=== PATIENT | female | born 1935 | race Caucasian/White ===

== ENCOUNTER 2016-09-14 07:05 | Emergency (ER) | payer MEDICARE, OTHER ==
[2016-09-14] MEDS ORDERED: ACETAMINOPHEN 325 MG TABLET PO ONE (07:51)
[2016-09-14 08:30] LABS: ABSOLUTE EOSINOPHILS # (AUTO) 0.1 10^3/uL (0.0-0.6); ABSOLUTE LYMPHOCYTES (AUTO) 1.4 10^3/uL (0.5-4.7); ABSOLUTE MONOCYTES (AUTO) 0.5 10^3/uL (0.1-1.4); ABSOLUTE NEUT (AUTO) 2.5 10^3/uL (1.7-8.2); BASOPHILS % (AUTO) 0.8 % (0-2); EOSINOPHILS % (AUTO) 2.6 % (0-6); HEMATOCRIT 37.4 % (36.0-47.0); HEMOGLOBIN 12.3 g/dL (12.0-15.5); HGB HCT DIFFERENCE -0.5; LYMPHOCYTES % (AUTO) 30.5 % (13-45); MEAN CORPUSCULAR HEMOGLOBIN 30.5 pg (27.0-33.4); MEAN CORPUSCULAR VOLUME 92 fl (80-97); RED BLOOD COUNT 4.05 10^6/uL (3.72-5.28); RED CELL DISTRIBUTION WIDTH 12.9 % (11.5-14.0); SEGMENTED NEUTROPHILS % (AUTO) 56.1 % (42-78); WHITE BLOOD COUNT 4.5 10^3/uL (4.0-10.5)
--- NOTE | 2016-09-14 08:31 | ER Document Report ---
ED General - General Chief Complaint: Psych Problem Stated Complaint: PSYCH EVAL Time Seen by Provider: 09/14/16 07:15 Notes: patient is an 81-year-old female presents emergency department via EMS with family primary complaint of dementia. History per daughter who is at the bedside. Patient in May of this year and since then patient's mental status was rapidly decline secondary to Alzheimer's. Patient is following with primary care physician Dr. Root in [place] who has been adding medications to help cope with her acute episodes. Family presents today after patient has become more aggressive over the past 3 weeks. Daughter states that she is verbally abusive and occasionally throws objects at her her . They have difficulty redirecting her and orienting her. Otherwise denies any head injury, fevers, lethargy, weakness, decreased appetite, nausea, vomiting, abdominal pain, chest pain, cough. Medical history significant for history of left breast cancer with a left lumpectomy, history of atrial flutter, history of hypothyroidism, GERD. Past surgical history significant for lumpectomy and Oksana. Home medications are Exelon patch, Xanax, risperidone, metoprolol, levothyroxine , Paxil Past Medical History - Social History Smoking Status: Unknown if Ever Smoked Family History: Reviewed & Not Pertinent - Immunizations Hx Diphtheria, Pertussis, Tetanus Vaccination: - unknown Review of Systems - Review of Systems -: Yes ROS unobtainable due to patient's medical condition Physical Exam - Vital signs Vitals: Temp Pulse Resp BP 98.2 F 71 16 128/71 H 09/14/16 07:29 09/14/16 07:29 09/14/16 07:29 09/14/16 07:29 - General General appearance: Appears well, Other - Drowsy but arousable In distress: None Notes: PHYSICAL EXAM GENERAL: Alert, interacts well. HEAD: Normocephalic, atraumatic. EYES: Pupils equal, round, and reactive to light. Extraocular movements intact. ENT: Oral mucosa moist, tongue midline. NECK: Full range of motion. Supple. Trachea midline. LUNGS: Clear to auscultation bilaterally, no wheezes, rales, or rhonchi. No respiratory distress. HEART: Regular rate and rhythm. No murmurs, gallops, or rubs. ABDOMEN: Soft, nondistended, nontender. No guarding, rebound, or rigidity.. Bowel sounds present in all 4 quadrants. EXTREMITIES: Moves all 4 extremities spontaneously. No edema, radial and dorsalis pedis pulses 2/4 bilaterally. No cyanosis. NEUROLOGICAL: Alert and oriented x4. Normal speech. PSYCH: Normal affect, normal mood. SKIN: Warm, dry, normal turgor. No rashes or lesions noted. Course - Re-evaluation Re-evalutation: 09/14/16 09:19 Patient is an 81-year-old female hemodynamic stable, no acute distress and afebrile. CBC and CMP within normal limits with no evidence of leukocytosis, anemia, electrolyte abnormality, abnormality and function of liver, pancreas or kidneys. Urinalysis revealed urinary tract infection. Patient will be discharged home on p.o. Keflex capsules and following up with primary care physician on Monday. Discussed strict return precautions with family who are agreeable with plan. - Vital Signs Vital signs: Temp Pulse Resp BP Pulse Ox 98.2 F 71 16 128/71 H 09/14/16 07:29 09/14/16 07:29 09/14/16 07:29 09/14/16 07:29 - Laboratory Result Diagrams: 09/14/16 07:59 09/14/16 07:59 Laboratory results interpreted by me: 09/14/16 09/14/16 07:59 07:59 BUN 29 H Urine Protein 30 H Urine Blood SMALL H Urine Nitrite POSITIVE H Urine Urobilinogen 2.0 H Ur Leukocyte Esterase MODERATE H Discharge - Discharge Clinical Impression: UTI (urinary tract infection) Condition: Good Disposition: HOME, SELF-CARE Instructions: Cephalexin ([facility]), Urinary Tract Infection ([facility]) Prescriptions: Cephalexin Monohydrate [Keflex 500 mg Capsule] 500 mg PO BID 5 Days Ondansetron [Zofran Odt 4 mg Tablet] 1 - 2 tab PO Q4H PRN #15 tab.rapdis PRN Reason: For Nausea/Vomiting Referrals: KEARA COYLE DO [NO LOCAL MD] - Follow up in 3-5 days
[2016-09-14 08:49] LABS: APPEARANCE,URINE TURBID; BILIRUBIN,URINE NEGATIVE (NEGATIVE); GLUCOSE, URINE NEGATIVE (NEGATIVE); KETONES,URINE NEGATIVE (NEGATIVE); LEUKOCYTE ESTERASE,URINE MODERATE (NEGATIVE); NITRITE,URINE POSITIVE (NEGATIVE); PROTEIN,URINE 30 mg/dL (NEGATIVE); URINE SPECIFIC GRAVITY 1.023
[2016-09-14 08:51] LABS: ALANINE AMINOTRANSFERASE 23 U/L (9-52); ALBUMIN 3.8 g/dL (3.5-5.0); ALKALINE PHOSPHATASE 53 U/L (38-126); ANION GAP 10 (5-19); ASPARTATE AMINO TRANSFERASE 24 U/L (14-36); BILIRUBIN,DIRECT 0.4 mg/dL (0.0-0.4); BILIRUBIN,TOTAL 0.4 mg/dL (0.2-1.3); BLOOD UREA NITROGEN 29 mg/dL (7-20); CALCIUM 9.4 mg/dL (8.4-10.2); CARBON DIOXIDE 24 mmol/L (22-30); CHLORIDE 107 mmol/L (98-107); CREATININE RESULT 0.84 mg/dL (0.52-1.25); GLUCOSE 98 mg/dL (75-110); POTASSIUM 4.6 mmol/L (3.6-5.0); SODIUM 141.2 mmol/L (137-145); TOTAL PROTEIN 6.5 g/dL (6.3-8.2)
--- NOTE | 2016-09-14 09:03 | RADIOLOGY REPORT (SQ) ---
EXAM DESCRIPTION: CHEST PA/LAT COMPLETED DATE/TIME: 09/14/2016 8:45 am REASON FOR STUDY: AMS COMPARISON: None. NUMBER OF VIEWS: Two view. TECHNIQUE: Frontal and lateral radiographic views of the chest acquired. LIMITATIONS: None. FINDINGS: LUNGS AND PLEURA: No opacities, masses or pneumothorax. No pleural effusion. Lungs are mi ldly hyperinflated with attenuated blood vessels and flattened noah-diaphragms. MEDIASTINUM AND HILAR STRUCTURES: No masses. No contour abnormalities. HEART AND VASCULAR STRUCTURES: Heart normal in size and contour. No evidence for failure. BONES: No acute findings. HARDWARE: EKG leads overlie the chest OTHER: No other significant finding. IMPRESSION: Findings suggestive of COPD. NO ACUTE RADIOGRAPHIC FINDING IN THE CHEST. TECHNICAL DOCUMENTATION: JOB ID: [id number] [employer]- All Rights Reserved
[2016-09-14] MEDS ORDERED: CEPHALEXIN 500 MG CAPSULE PO ONE (09:17)
[2016-09-14 09:36] VITALS: BP 118/106
== END 2016-09-14 09:35 | disposition home or self-care (01) ==
LOC: ER 07:05
DX: N39.0 Urinary tract infection, site not specified (principal); F03.90 Unspecified dementia, unspecified severity, without behavioral disturbance, psychotic disturbance, mood disturbance, and anxiety
CPT/HCPCS: 99285; 36415; 87086; 85025; 87088; 80053; 81001; 87186; 71020; A9270 ×2